=== PATIENT | female | born 1935 | race Hispanic/Latino ===

== ENCOUNTER 2021-04-08 15:38 | Outpatient (CLI) | payer MEDICARE ==
[2021-04-09 00:28] LABS: SARS-CoV-2 PCR by NAA Not Detected (NotDetected)
== END 2021-04-08 15:39 | disposition home or self-care (01) ==
LOC: CSHLAB 15:38
PROVIDERS: ATTEND Internal Medicine Gastroenterology
DX: Z01.812 Encounter for preprocedural laboratory examination (principal); Z20.822 Contact with and (suspected) exposure to COVID-19
CPT/HCPCS: U0003; U0005

== ENCOUNTER 2021-04-11 13:58 | Outpatient (CLI) | payer MEDICARE | END 2021-04-11 13:59 | disposition home or self-care (01) | LOC: CSHRAD 13:58 | PROVIDERS: ATTEND Internal Medicine Gastroenterology | DX: R13.10 Dysphagia, unspecified (principal); K22.89 Other specified disease of esophagus | CPT/HCPCS: 74220 ==

== ENCOUNTER 2023-10-08 09:27 | Outpatient (CLI) | payer MEDICARE | END 2023-10-08 09:28 | disposition home or self-care (01) | LOC: CSHRAD 09:27 | PROVIDERS: ATTEND Orthopaedic Surgery | DX: M54.50 Low back pain, unspecified (principal); M53.3 Sacrococcygeal disorders, not elsewhere classified; Z98.890 Other specified postprocedural states; M47.816 Spondylosis without myelopathy or radiculopathy, lumbar region | CPT/HCPCS: 72100; 72190 ==